=== PATIENT | female | born 1990 | race Caucasian/White ===

== ENCOUNTER 2017-06-26 23:07 | Emergency (ER) | payer OTHER ==
[~2017-06-26] VITALS: Ht 162.6 cm; Wt 86.2 kg
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
[~2017-06-26 23:07] MED LIST: CIPRO PO; FLECTOR1 EACH PO; FLEXERIL PO; KEFLEX125 MG/5 M PO; KETOPROFEN PO; NAPROXEN PO; PHENERGAN PO; PYRIDIUM PO
[2017-06-26] MEDS ORDERED: NO MEDICATIONS (23:14)
== END 2017-06-27 02:15 | disposition home or self-care (01) ==
LOC: CFTX 23:07 → CED 23:07 → CFTX 23:59
DX: S96.911A Strain of unspecified muscle and tendon at ankle and foot level, right foot, initial encounter (principal); S66.911A Strain of unspecified muscle, fascia and tendon at wrist and hand level, right hand, initial encounter; S80.02XA Contusion of left knee, initial encounter; V49.49XA Driver injured in collision with other motor vehicles in traffic accident, initial encounter; Y93.89 Activity, other specified; Y92.410 Unspecified street and highway as the place of occurrence of the external cause
CPT/HCPCS: 29125; 29540; 73110; 73562; 73610; 99283